=== PATIENT | female | born 1995 | race Caucasian/White ===

== ENCOUNTER → 2022-10-09 | Outpatient (CLI) | payer OTHER, SELFPAY ==
[2022-10-09 16:16] LABS: Absolute Lymphocyte Count 1.56 X10^3/uL (0.83-4.51); Absolute Neutrophil Count 5.3 X10^3/uL (2.0-7.7); Basophil# 0.02 X10^3/uL; Basophil% 0.3 % (0-1); Eosinophil# 0.05 X10^3/uL; Eosinophils% 0.7 % (0-5); Hematocrit 37.1 % (37-47); Hemoglobin 12.9 g/dL (12.0-15.0); Lymphocyte # 1.56 X10^3/ul (0.83-4.51); Lymphocyte % 20.8 % (19-41); Mean Corp Hgb Conc 34.8 g/dL (32-36); Mean Corpuscular Hgb 31.5 pg (27.0-32.0); Mean Corpuscular Volume 90.5 fL (81-99); Monocyte# 0.51 X10^3/uL; Monocyte% 6.8 % (0-10); NRBC Flagged by Analyzer 0 % (0-5); Neutrophil # 5.32 X10^3/uL (2.7-7.7); Platelet Count 287 K/mm3 (150-450); RBC Distribution Width CV 12.2 % (11.6-14.6); RBC Distribution Width SD 40.2 fl (35.1-43.9); White Blood Count 7.5 K/mm3 (4.4-11.0)
[2022-10-09 17:30] LABS: HIV - WCH Non-Reactive (Nonreactive); Hepatitis B Surface Antigen Non-Reactive (Nonreactive); Hepatitis C Antibody Non-Reactive (Nonreactive); Rubella IgG Reactive (Nonreactive); Syphilis Antibodies Non-reactive
[2022-10-11 08:08] LABS: V-Zoster IgG (Immunity) 964 index (Immune >165)
[2022-10-14 17:56] LABS: HPV Reflexed? NOT INDICATED
== END | disposition home or self-care (01) ==
PROVIDERS: PCP Family Medicine; Referring Provider Obstetrics & Gynecology; Visit Provider Obstetrics & Gynecology
DX: Z34.81 Encounter for supervision of other normal pregnancy, first trimester (principal)
CPT/HCPCS: 85025; 86703; 86762; 86780; 86787; 86803; 86850; 86900; 86901; 87086; 87088; 87340; 88175; G0145

== ENCOUNTER → 2022-11-05 | Outpatient (CLI) | payer OTHER, SELFPAY ==
[2022-11-05 11:39] LABS: Absolute Lymphocyte Count 1.55 X10^3/uL (0.83-4.51); Basophil# 0.01 X10^3/uL; Basophil% 0.2 % (0-1); Eosinophil# 0.03 X10^3/uL; Eosinophils% 0.5 % (0-5); Hematocrit 37.8 % (37-47); Hemoglobin 12.9 g/dL (12.0-15.0); Lymphocyte # 1.55 X10^3/ul (0.83-4.51); Lymphocyte % 25.5 % (19-41); Mean Corp Hgb Conc 34.1 g/dL (32-36); Mean Corpuscular Hgb 30.9 pg (27.0-32.0); Mean Corpuscular Volume 90.6 fL (81-99); Monocyte# 0.45 X10^3/uL; Monocyte% 7.4 % (0-10); NRBC Flagged by Analyzer 0 % (0-5); Neutrophil # 4.01 X10^3/uL (2.7-7.7); Neutrophil % 65.9 % (47-70); Platelet Count 286 K/mm3 (150-450); RBC Distribution Width CV 12.1 % (11.6-14.6); RBC Distribution Width SD 40.1 fl (35.1-43.9); Red Blood Count 4.17 M/mm3 (4.2-5.4); White Blood Count 6.1 K/mm3 (4.4-11.0)
[2022-11-05 11:47] LABS: Protein, Urine (Random) 19.9 mg/dL (<11.9); Protein:Creat Ratio 141 mg/g CRE (0-200)
[2022-11-05 11:51] LABS: ALB/GLOB Ratio 0.9 RATIO (0.9-2.4); AST(SGOT) 12 U/L (15-37); Alanine Aminotransfer ALT/SGPT 18 U/L (13-56); Albumin, Serum 3.1 g/dL (3.2-5.0); Alkaline Phosphatase 50 U/L (45-117); Anion Gap 6 (5-15); BUN 8 mg/dL (7-18); BUN/Creat Ratio 16.7 RATIO (10-20); Calcium,Total 8.7 mg/dL (8.5-10.1); Chloride 109 mmol/L (98-107); Creatinine, Serum 0.48 mg/dL (0.55-1.02); EST Glomerular Filtration Rate 165 mL/min (>60); Est Glom Filt Rate - Afr Amer 200 mL/min (>60); Globulin 3.3 g/dL (2.2-4.2); Glucose 89 mg/dL (74-106); LDH 131 U/L (84-246); Potassium 3.6 mmol/L (3.5-5.1); Protein, Total 6.4 g/dL (6.4-8.2); Sodium Level 139 mmol/L (136-145)
== END | disposition home or self-care (01) ==
LOC: WOBLAB 10:39
PROVIDERS: PCP Family Medicine; Visit Provider Obstetrics & Gynecology
DX: I10 Essential (primary) hypertension (principal)
CPT/HCPCS: 36415; 80053; 82570; 83615; 84156; 85025; 87086; 87088

== ENCOUNTER 2023-05-05 08:55 | Inpatient (IN) | payer OTHER, SELFPAY ==
--- NOTE | 2023-04-30 12:40 | HP.PCM_ITS ---
History and Physical Date of Admission: 05/05/23 HPI: The patient is a 27 year old female presenting for pre-operative visit. She is scheduled for repeat , for previous c/s nad 39 weeks on 05/05. Procedure discussed along with risks, benefits and complications. Other alternatives discussed for management. Consent form signed? Yes. ? ? PAST MEDICAL HISTORY PAST MEDICAL HISTORY Diagnosis Date ? Anemia ? ? ? Biliary colic 05/29/2013 ? Headache ? ? History of pre-eclampsia in prior , currently ? ? Ovarian torsion ? ? Rh incompatibility ? ? RUQ pain 05/29/2013 ? ? PAST SURGICAL HISTORY PAST SURGICAL HISTORY Procedure Laterality Date ? DELIVERY ONLY ? 12/04/15 ? , low transverse ? LAPAROSCOPY SURG CHOLECYSTECTOMY ? 05/29/13 ? MYRINGOTOMY ASPIR&/EUSTACHIAN TUBE NFLTJ ANES ? ? ? Myringotomy/tubes ? SALPINGECTOMY OR OOPHERECTOMY-ECTOPIC ? 05/2015 ? right ovary cyst with torsion ? ? ? CURRENT MEDICATIONS Current Outpatient Medications Medication Sig Dispense Refill ? aspirin, enteric coated (ASPIRIN, ENTERIC COATED) 81 mg EC tablet Take 1 tablet by mouth every afternoon. ? ? ? [id number] acd 27mg iron- 0.8 mg tab Take by mouth. ? ? ? No current facility-administered medications for this visit. ? ? ALLERGIES: Zithromax [Azithromycin] ? PERSONAL HISTORY: SOCIAL HISTORY Social History ? Tobacco Use ? Smoking status: Never ? Smokeless tobacco: Never Vaping Use ? Vaping Use: Never used Substance Use Topics ? Alcohol use: Not Currently ? ? Comment: Occasionally- not while ? Drug use: No ? FAMILY HISTORY: FAMILY HISTORY FAMILY HISTORY Problem Relation Age of Onset ? other (anemia) Mother ? ? No Known Problems Father ? ? No Known Problems Sister ? ? No Known Problems Brother ? ? No Known Problems Brother ? ? No Known Problems Brother ? ? No Known Problems Brother ? ? Thyroid Brother ? ? Cancer Maternal Grandmother ? ? many types ? Thyroid Maternal Grandmother ? ? Cancer Maternal Grandfather ? ? many types ? Hypertension Maternal Grandfather ? ? No Known Problems Paternal Grandmother ? ? Ischemic Heart Disease Paternal Grandfather ? ? Breast Cancer Maternal Aunt ? ? Cancer Paternal Aunt ? ? lung, liver ? Cancer Paternal Uncle ? ? liver ? No Known Problems Son ? ? ? REVIEW OF SYMPTOMS: GENERAL: denies fevers or chills ENDOCRINOLOGY: has not been on steroids Cardiology : denies palpitations or chest pain Respiratory: denies SOB or cough Hematology: denies history of prolonged bleeding or easy bruising or VTE Allergy: Denies history of personal or family history of allergy to anesthesia ? PHYSICAL EXAMINATION: ? VITALS: Blood pressure 112/68, weight 217 lb (98.4 kg), last menstrual period 08/02/2022. ? GENERAL: The patient is well nourished, well hydrated in no acute distress. , The patient is oriented to time, place, and person. NECK: Supple. No lynphadenopathy, normal thyroid, no thyromegaly. LUNGS: Clear to auscultation bilaterally. no wheezes, rhonchi or rales HEART: Regular rate and rhythm, Normal heart sounds, and No murmurs or gallops ABD- soft, nontender, gravid ? IMPRESSION: Estimated Date of Delivery: 05/09/23 ? PLAN: The risks/benefits/alternatives and personal involved for the planned repeat c/s were reviewed with the patient. Her questions were answered to her satisfaction and she desires to proceed. Consent was signed. I reviewed with her postop instructions and expectations. ? ? I have reviewed and updated past medical and surgical history, medications and a llergies Assessment & Plan Assessment/Plan (1) 39 weeks gestation of : (2) Previous delivery affecting :
[2023-05-05] VITALS (18 sets, daily range): BP systolic 105–132; BP diastolic 68–98; PULSE 77–99; RESP 16–21; TEMP 36.2–36.8; O2SAT 94–98; BMI 34.2
[2023-05-05] MEDS: Lactated Ringers 1,000 ML 999 ML IV (09:20)
[2023-05-05 09:46] LABS: Absolute Lymphocyte Count 1.51 X10^3/uL (0.83-4.51); Absolute Neutrophil Count 4.8 X10^3/uL (2.0-7.7); Basophil# 0.01 X10^3/uL; Basophil% 0.1 % (0-1); Eosinophil# 0.04 X10^3/uL; Eosinophils% 0.6 % (0-5); Hematocrit 33.1 % (37-47); Hemoglobin 10.8 g/dL (12.0-15.0); Lymphocyte # 1.51 X10^3/ul (0.83-4.51); Lymphocyte % 21.8 % (19-41); Mean Corp Hgb Conc 32.6 g/dL (32-36); Mean Corpuscular Volume 85.8 fL (81-99); Mean Platelet Vol. 10.1 fl (6.2-12.0); Monocyte# 0.51 X10^3/uL; Monocyte% 7.4 % (0-10); NRBC Flagged by Analyzer 0 % (0-5); Neutrophil # 4.84 X10^3/uL (2.7-7.7); Neutrophil % 69.8 % (47-70); Platelet Count 264 K/mm3 (150-450); RBC Distribution Width CV 12.8 % (11.6-14.6); RBC Distribution Width SD 39.8 fl (35.1-43.9); Red Blood Count 3.86 M/mm3 (4.2-5.4); White Blood Count 6.9 K/mm3 (4.4-11.0)
--- OUTSIDE RECORDS SUMMARY | 2023-05-05 09:48 | XMS RPT_ITS | CCD ---
Author Name Unknown Address [address] [place] [address] Organization [facility] Care Team Providers [employer] Supervisor Name Role Phone Lloyd Soto DO Primary Care Provider CL[employer]S Attending Unavailable BROWN, LLOYD R Primary Care Unavailable SHAZIA YA Attending Unavailable BROWN, LLOYD R Primary Care Unavailable SHAZIA YA Referring Unavailable GLORIA, LLOYD R Primary Care Unavailable SHAZIA YA Attending Unavailable GLORIA, LLOYD R Primary Care Unavailable SHAZIA YA Attending Unavailable GLORIA, LLOYD R Primary Care Unavailable BROWN, LLOYD R Primary Care Unavailable SELF Referring Unavailable SHAZIA YA Attending Unavailable GLORIA, LLOYD R Primary Care Unavailable SHAZIA YA Attending Unavailable GLORIA, LLOYD R Primary Care Unavailable SHAZIA YA Attending Unavailable GLORIA, LLOYD R Primary Care Unavailable CYNDI XIAO Attending Unavailable BROWN, LLOYD R Primary Care Unavailable Allergies Allergy Classification Reported Allergen(s) Allergy Type Date of Onset Reaction(s) Facility (6 sources) Azithromycin; Translations: [AZITHROMYCIN] Drug Allergy 05-26-2013 Hives, Anaphylaxis [facility] Work Phone: Medications Completed/Discontinued Medications Medication Drug Class(es) Dates Sig (Normalized) Sig (Original) aspirin 81 mg delayed release oral tablet (4 sources) Platelet Aggregation Inhibitor, Nonsteroidal Anti-inflammatory Drug Start: 11-05-2022 take 1 tablet by mouth once aspirin, enteric coated (ASPIRIN, ENTERIC COATED) 81 mg EC tablet Take 1 tablet by mouth every afternoon. 0 11/05/2022 Active Problems Active Problems Problem Classification Problem Date Documented Da te Episodic/Chronic Immunizations and screening for infectious disease (1 source) Requires diphtheria, tetanus and pertussis vaccination; Translations: [Encounter for immunization] 03-08-2023 Episodic Other complications of (5 sources) Obesity; Translations: [Obesity complicating , unspecified trimester] Onset: 12-28-2022 01-12-2023 Chronic Other complications of (1 source) Obesity complicating , unspecified trimester; Translations: [Obesity during ] Onset: 12-28-2022 Chronic Residual codes; unclassified (1 source) Gestation period, 23 weeks; Translations: [23 weeks gestation of ] 01-12-2023 Episodic Residual codes; unclassified (1 source) Gestation period, 27 weeks; Translations: [27 weeks gestation of ] 02-12-2023 Episodic Residual codes; unclassified (1 source) Gestation period, 31 weeks; Translations: [31 weeks gestation of ] 03-08-2023 Episodic Residual codes; unclassified (1 source) Gestation period, 38 weeks; Translations: [38 weeks gestation of ] 04-30-2023 Episodic Residual codes; unclassified (1 source) 23 weeks gestation of ; Translations: [23 weeks gestation of ] Onset: 02-12-2023 Episodic Past or Other Problems Problem Classification Problem Date Documented Da te Episodic/Chronic Other complications of (5 sources) History of pre-eclampsia; Translations: [Supervision of with other poor reproductive or obstetric history, unspecified trimester] Onset: 12-28-2022 01-12-2023 Episodic Other complications of (1 source) Supervision of with other poor reproductive or obstetric history, unspecified trimester; Translations: [History of pre-eclampsia in prior , currently ] Onset: 12-28-2022 Episodic Other and delivery including normal (3 sources) Normal ; Translations: [Encounter for supervision of other normal , second trimester] Onset: 12-28-2022 02-12-2023 Episodic Previous (15 sources) ; Translations: [Maternal care for unspecified type scar from previous delivery] Onset: 12-28-2022 01-12-2023 Episodic Results Test Name Value Interpretation Reference Range Facil ity Vital Signs Date Time Vital Sign Value Performing Clinician Fortino correa 04-30-2023 11:03-0500 Body weight 98.43 kg Shazia Ya MD Work Phone: [facility] 04-30-2023 11:03-0500 Diastolic blood pressure 68 mm[Hg] Shazia Ya MD Work Phone: [facility] 04-30-2023 11:03-0500 Systolic blood pressure 112 mm[Hg] Shazia Ya MD Work Phone: [facility] 03-08-2023 15:51-0500 Diastolic blood pressure 74 mm[Hg] Shazia Ya MD Work Phone: [facility] 03-08-2023 15:51-0500 Systolic blood pressure 110 mm[Hg] Shazia Ya MD Work Phone: [facility] 03-08-2023 15:34-0500 Body weight 88.91 kg Shazia Ya MD Work Phone: [facility] 02-12-2023 10:19-0500 Body weight 88 kg Shazia Ya MD Work Phone: [facility] 02-12-2023 10:19-0500 Diastolic blood pressure 60 mm[Hg] Shazia Ya MD Work Phone: [facility] 02-12-2023 10:19-0500 Systolic blood pressure 104 mm[Hg] Shazia Ya MD Work Phone: [facility] 01-12-2023 13:12-0400 Body weight 85.28 kg Shazia Ya MD Work Phone: [facility] 01-12-2023 13:12-0400 Diastolic blood pressure 58 mm[Hg] Shazia Ya MD Work Phone: [facility] 01-12-2023 13:12-0400 Systolic blood pressure 102 mm[Hg] Shazia Ya MD Work Phone: [facility] Encounters Encounter Date Encounter Type Care Provider Facility Start: 04-30-2023 End: 04-30-2023 ambulatory SELF Facility:[facility] Start: 04-30-2023 End: 04-30-2023 Patient encounter procedure Shazia Ya MD Work Phone: OB/Gynecology Procedures Date Procedure Procedure Detail Performing Clinician Start: 04-30-2023 URINE OB DIP B/O Sobeida Ya MD Work Phone: Start: 03-08-2023 URINE OB DIP B/O Sobeida Ya MD Work Phone: Start: 02-12-2023 URINE OB DIP B/O Sobeida Ya MD Work Phone: Plan of Treatment Date Care Activity Detail Author Start: 03-08-2033 Urine microalbumin profile DTa P,Tdap,Td Vaccine (6 - Td or Tdap) [facility] Start: 10-09-2025 Pap Testing Pap Testing [facility] Start: 10-09-2025 Screening for malign ant neoplasm of cervix Pap Testing [facility] Start: 09-18-2025 Urine microalbumin profile [facility] Start: 09-26-2023 Influenza vaccination Influenza Vacc ine (#1) [facility] Immunizations Immunization Date Immunization Notes Care Provider Fa cility 03-08-2023 tetanus toxoid, redu sharita diphtheria toxoid, and acellular pertussis vaccine, adsorbed Shazia Ya MD Work Phone: [facility] 09-19-2015 tetanus toxoid, redu sharita diphtheria toxoid, and acellular pertussis vaccine, adsorbed Shazia Ya MD Work Phone: [facility] Work Phone: 12-08-2013 adenovirus, type 4 a nd type 7, live, oral Shazia Ya MD Work Phone: [facility] Work Phone: 12-08-2013 hepatitis A vaccine, pediatric/adolescent dosage, 2 dose schedule Shazia Ya MD Work Phone: [facility] Work Phone: 12-08-2013 hepatitis B vaccine, pediatric or pediatric/adolescent dosage Shazia Ya MD Work Phone: [facility] Work Phone: 12-08-2013 influenza, live, intranasal, quadrivalent Shazia Ya MD Work Phone: [facility] Work Phone: 12-08-2013 meningococcal polysaccharide (groups A, C, Y and W-135) diphtheria toxoid conjugate vaccine (MCV4P) Shazia Ya MD Work Phone: [facility] Work Phone: 12-08-2013 poliovirus vaccine, inactivated Shazia Ya MD Work Phone: [facility] Work Phone: 12-08-2013 tetanus toxoid, redu sharita diphtheria toxoid, and acellular pertussis vaccine, adsorbed Shazia Ya MD Work Phone: [facility] Work Phone: 12-08-2013 influenza virus vacc ine, unspecified formulation Shazia Ya MD Work Phone: [facility] 12-05-2010 human papilloma viru s vaccine, bivalent Shazia Ya MD Work Phone: [facility] Work Phone: 08-04-2010 human papilloma viru s vaccine, bivalent Shazia Ya MD Work Phone: [facility] Work Phone: 06-02-2010 diphtheria, tetanus toxoids and pertussis vaccine Shazia Ya MD Work Phone: [facility] Work Phone: 06-02-2010 human papilloma viru s vaccine, bivalent Shazia Ya MD Work Phone: [facility] Work Phone: 06-02-2010 meningococcal polysaccharide (groups A, C, Y and W-135) diphtheria toxoid conjugate vaccine (MCV4P) Shazia Ya MD Work Phone: [facility] Work Phone: 11-17-1999 diphtheria, tetanus toxoids and acellular pertussis vaccine, unspecified formulation Shazia Ya MD Work Phone: [facility] Work Phone: 11-17-1999 hepatitis B vaccine, pediatric or pediatric/adolescent dosage Shazia Ya MD Work Phone: [facility] Work Phone: 11-17-1999 poliovirus vaccine, inactivated Shazia Ya MD Work Phone: [facility] Work Phone: Payers Date Payer Category Payer Unknown MMO MMO [employer] PPO [id number] 2021-Present [phone] [address] [place] [address] PPO [id number] 2021 Unknown [id number] Social History Date Type Detail Facility Start: 04-07-2017 End: 12-28-2022 Tobacco smoking status NHIS Never smoked tobacco [facility] Start: 04-07-2017 End: 12-28-2022 Tobacco use and exposure Smokeless tobacco non-user [facility] Start: 02-22-2019 Alcohol intake Current non-dr hr administrative assistant of alcohol (finding) [facility] Start: 02-22-2019 End: 03-06-2020 History of Social function [facility] Start: 02-22-2019 End: 03-06-2020 Tobacco use panel [facility] National Score (1-10 0), lower number is lower risk Not on file [facility] Start: 1995 Sex Assigned At Not on file [facility] Start: 01-12-2023 End: 04-30-2023 Alcohol intake Ex-drinker (finding) [facility] Start: 12-28-2022 Education 13 [facility] Start: 01-12-2023 Alcohol Comment Occasionally- not while [facility] Start: 08-16-2022 [facility] Goals Date Patient Goal Desired Activity /State Personal health goal Clinical Notes 11-27-2015 to 04-30-2023 Shazia Ya MD - 04/30/2023 11:19 AM ESTPrenatal Quick Notes - Shazia Ya MD - 04/30/2023 11:18 AM ESTPatient Blossom Desai MA - 03/08/2023 3:51 PM EST Note Date & Type Note Facility 04-30-2023 History and physical note Pre-Op History and Physical HPI: The patient is a 27 year old female presenting for pre-operative visit. She is scheduled for repeat , for previous c/s nad 39 weeks on 05/05. Procedure discussed along with risks, benefits and complications. Other alternatives discussed for management. Consent form signed? Yes. PAST MEDICAL HISTORY Diagnosis Date Anemia Biliary colic 05/29/2013 Headache History of pre-eclampsia in prior , currently Ovarian torsion Rh incompatibility RUQ pain 05/29/2013 PAST SURGICAL HISTORY Procedure Laterality Date DELIVERY ONLY 12/04/15 , low transverse LAPAROSCOPY SURG CHOLECYSTECTOMY 05/29/13 MYRINGOTOMY ASPIR&/EUSTACHIAN TUBE NFLTJ ANES Myringotomy/tubes SALPINGECTOMY OR OOPHERECTOMY-ECTOPIC 05/2015 right ovary cyst with torsion Current Outpatient Medications Medication Sig Dispense Refill aspirin, enteric coated (ASPIRIN, ENTERIC COATED) 81 mg EC tablet Take 1 tablet by mouth every afternoon. [id number] acd 27mg iron- 0.8 mg tab Take by mouth. No current facility-administered medications for this visit. ALLERGIES: Zithromax [Azithromycin] PERSONAL HISTORY: Social History Tobacco Use Smoking status: Never Smokeless tobacco: Never Vaping Use Vaping Use: Never used Substance Use Topics Alcohol use: Not Currently Comment: Occasionally- not while Drug use: No FAMILY HISTORY: FAMILY HISTORY Problem Relation Age of Onset other (anemia) Mother No Known Problems Father No Known Problems Sister No Known Problems Brother No Known Problems Brother No Known Problems Brother No Known Problems Brother Thyroid Brother Cancer Maternal Grandmother many types Thyroid Maternal Grandmother Cancer Maternal Grandfather many types Hypertension Maternal Grandfather No Known Problems Paternal Grandmother Ischemic Heart Disease Paternal Grandfather Breast Cancer Maternal Aunt Cancer Paternal Aunt lung, liver Cancer Paternal Uncle liver No Known Problems Son REVIEW OF SYMPTOMS: GENERAL: denies fevers or chills ENDOCRINOLOGY: has not been on steroids Cardiology : denies palpitations or chest pain Respiratory: denies SOB or cough Hematology: denies history of prolonged bleeding or easy bruising or VTE Allergy: Denies history of personal or family history of allergy to anesthesia PHYSICAL EXAMINATION: VITALS: Blood pressure 112/68, weight 217 lb (98.4 kg), last menstrual period 08/02/2022. GENERAL: The patient is well nourished, well hydrated in no acute distress. , The patient is oriented to time, place, and person. NECK: Supple. No lynphadenopathy, normal thyroid, no thyromegaly. LUNGS: Clear to auscultation bilaterally. no wheezes, rhonchi or rales HEART: Regular rate and rhythm, Normal heart sounds, and No murmurs or gallops ABD- soft, nontender, gravid IMPRESSION: Estimated Date of Delivery: 05/09/23 PLAN: The risks/benefits/alternatives and personal involved for the planned repeat c/s were reviewed with the patient. Her questions were answered to her satisfaction and she desires to proceed. Consent was signed. I reviewed with her postop instructions and expectations. I have reviewed and updated past medical and surgical history, medications and allergies Shazia Ya M.D. documented in this encounter [facility] 04-30-2023 Miscellaneous Notes RR- VB No. LOF No. CTXS No. Movement: present. Other c/o: No. Medication list reviewed. Physical Exam See Flow Sheet Abd: soft, nontender, gravid A/P 38w5d Estimated Date of Delivery: 05/09/23 plans repeat c/s, Consent signed. Shazia Ya M.D. documented in this encounter [facility] 04-30-2023 Instructions Blossom Puente MA - 04/30/2023 11:00 AM EST SEQUENTIAL SCREENINGS The [facility] offers sequential screenings for women who are interested in screenings for chromosomal abnormalities and certain defects during a . The sequential screen combines ultrasound and blood tests to determine the risk of chromosomal abnormalities, including Down's Syndrome (Trisomy 21) and Trisomy 18, as well as open neural tube defects including spina bifida. Ultrasound examination is performed between 11 weeks and 13 weeks gestational age. Blood tests are drawn after the ultrasound and again later in the between 15 and 21 weeks gestational age. Please let your physician know if you are interested in this testing. It will require an appointment with our plasma processing technician. This is not an ultrasound performed by a physician in our office during a routine visit. SIGNS AND SYMPTOMS OF LABOR 1. Contractions every 10 minutes or more often 2. Clear, pink, or brownish fluid (water) leaking from vagina 3. Feeling that baby is pushing down, pressure 4. Low, dull backache 5. Cramps that feel like a period 6. Cramps with or without diarrhea If you notice any of the above symptoms, contact our office at [phone] and ask to speak with a nurse. After hours, you can call doctors registry at [phone] OR call [facility] at [phone] and ask to have the doctor medtronics technician paged. If you consider this an emergency, dial 1-1-0 or go to your nearest emergency department. NEED HELP? Are you dealing with a violent or abusive relationship? Are you a victim of rape or sexual assult? Call [facility] ([place]) 24 hour Crisis Hotline: 161.459.3201 or 876-897-1333. MANUAL Your Guide to a Healthy manual is now on-line. Visit [email or web address] to download your free copy documented in this encounter [facility] 03-08-2023 Note HNO ID: [id number] Author: Blossom Puente MA Service: ? Author Type: Director Media Type: Progress Notes Filed: 03/08/2023 4:34 PM Note Text: Patient identified by name and date of . Christiano Stover presents today for a vaccination of Tdap. Patient denies an allergy to latex: yes Patient denies a severe (life-threatening) allergy to a previous dose of Tdap, DTP, DTaP, DT or Td vaccine. Yes Patient denies history of epilepsy or neurological problems: Yes Patient is afebrile and denies being moderately or severely ill: Yes Patient denies history of Guillain-[place] Syndrome (a severe paralytic illness): Yes Tdap Adacel injection was given without incident. See immunizations for details of immunizations administered today. VIS sheet provided: Yes Provider Shazia Ya MD was present in office at time of injection. Blossom Puente MA [facility] 03-08-2023 History of Presen t illness Narrative Patient identified by name and date of . Christiano Stover presents today for a vaccination of Tdap. Patient denies an allergy to latex: yes Patient denies a severe (life-threatening) allergy to a previous dose of Tdap, DTP, DTaP, DT or Td vaccine. Yes Patient denies history of epilepsy or neurological problems: Yes Patient is afebrile and denies being moderately or severely ill: Yes Patient denies history of Guillain-[place] Syndrome (a severe paralytic illness): Yes Tdap Adacel injection was given without incident. See immunizations for details of immunizations administered today. VIS sheet provided: Yes Provider Shazia Ya MD was present in office at time of injection. Blossom Puente MA documented in this encounter [facility] 03-08-2023 Miscellaneous Notes RR- VB No. LOF No. CTXS No. Movement: present. Other c/o: No. Medication list reviewed. Physical Exam See Flow Sheet Abd: soft, nontender, gravid Ext: edema: Trace A/P 31w1d Estimated Date of Delivery: 05/09/23 tdap today plans repeat c/s f/u in 2 weeks reviewed RSV recommendations and she will consider Shazia Ya M.D. documented in this encounter [facility] 03-08-2023 Instructions Blossom Puente MA - 03/08/2023 3:29 PM EST SEQUENTIAL SCREENINGS The [facility] offers sequential screenings for women who are interested in screenings for chromosomal abnormalities and certain defects during a . The sequential screen combines ultrasound and blood tests to determine the risk of chromosomal abnormalities, including Down's Syndrome (Trisomy 21) and Trisomy 18, as well as open neural tube defects including spina bifida. Ultrasound examination is performed between 11 weeks and 13 weeks gestational age. Blood tests are drawn after the ultrasound and again later in the between 15 and 21 weeks gestational age. Please let your physician know if you are interested in this testing. It will require an appointment with our plasma processing technician. This is not an ultrasound performed by a physician in our office during a routine visit. SIGNS AND SYMPTOMS OF LABOR 1. Contractions every 10 minutes or more often 2. Clear, pink, or brownish fluid (water) leaking from vagina 3. Feeling that baby is pushing down, pressure 4. Low, dull backache 5. Cramps that feel like a period 6. Cramps with or without diarrhea If you notice any of the above symptoms, contact our office at [phone] and ask to speak with a nurse. After hours, you can call doctors registry at [phone] OR call [facility] at [phone] and ask to have the doctor medtronics technician paged. If you consider this an emergency, dial 9-1-1 or go to your nearest emergency department. NEED HELP? Are you dealing with a violent or abusive relationship? Are you a victim of rape or sexual assult? Call [facility] ([place]) 24 hour Crisis Hotline: 664.676.4882 or 454-477-4426. MANUAL Your Guide to a Healthy manual is now on-line. Visit [email or web address] to download your free copy documented in this encounter [facility] 02-12-2023 Miscellaneous Notes RR- VB No. LOF No. CTXS No. Movement: present. Other c/o: No. Medication list reviewed. Physical Exam See Flow Sheet Abd: soft, nontender, gravid Ext: edema: Trace A/P 27w5d Estimated Date of Delivery: 05/09/23 Labs: 28 week labs today d/w her RSV vaccine for women and newborns Declines LARC at delivery, signed- likely will use depoprovera plans bottle feeding Plans repeat c/s, does not want tubal Shazia Ya M.D. documented in this encounter [facility] 02-12-2023 Instructions Gema Ritchie Ma - 02/12/2023 10:21 AM EST SEQUENTIAL SCREENINGS The [facility] offers sequential screenings for women who are interested in screenings for chromosomal abnormalities and certain defects during a . The sequential screen combines ultrasound and blood tests to determine the risk of chromosomal abnormalities, including Down's Syndrome (Trisomy 21) and Trisomy 18, as well as open neural tube defects including spina bifida. Ultrasound examination is performed between 11 weeks and 13 weeks gestational age. Blood tests are drawn after the ultrasound and again later in the between 15 and 21 weeks gestational age. Please let your physician know if you are interested in this testing. It will require an appointment with our plasma processing technician. This is not an ultrasound performed by a physician in our office during a routine visit. SIGNS AND SYMPTOMS OF LABOR 1. Contractions every 10 minutes or more often 2. Clear, pink, or brownish fluid (water) leaking from vagina 3. Feeling that baby is pushing down, pressure 4. Low, dull backache 5. Cramps that feel like a period 6. Cramps with or without diarrhea If you notice any of the above symptoms, contact our office at [phone] and ask to speak with a nurse. After hours, you can call doctors registry at [phone] OR call [facility] at [phone] and ask to have the doctor medtronics technician paged. If you consider this an emergency, dial 9-1-6 or go to your nearest emergency department. NEED HELP? Are you dealing with a violent or abusive relationship? Are you a victim of rape or sexual assult? Call [facility] ([place]) 24 hour Crisis Hotline: 736.476.1980 or 948-168-0340. MANUAL Your Guide to a Healthy manual is now on-line. Visit [email or web address] to download your free copy documented in this encounter [facility] 01-12-2023 Note HNO ID: [id number] Author: Shazia Ya MD Service: ? Author Type: Physician Type: Progress Notes Filed: 01/12/2023 1:32 PM Note Text: INITIAL OB ASSESSMENT OB Provider: Shazia Ya MD HPI: Eveline is a 27 year old White here to establish Obstetrical Care. Patient's last menstrual period was 08/02/2022 (approximate). from OB Dating Form. Cycles regular was unplanned but accepted Complaints: None OB History T1 L1 SAB0 IAB0 Ectopic0 Multiple0 Live Births1 # 1 - Date: 12/04/15, Sex: Male, Weight: 8 lb 12 oz (3.969 kg), GA: 37w0d, Delivery: , Low Transverse, Apgar1: None, Apgar5: None, Living: Living, Comments: Induced due to mild preeclampsia, arrest of descent, EBL 800cc # 2 - Date: None, Sex: None, Weight: None, GA: None, Delivery: None, Apgar1: None, Apgar5: None, Living: None, Comments: None Previous history: Prior : yes x 1 History of 4th degree laceration: No History of shoulder dystocia: No History of Hypertensive disorders including pre-eclampsia, chronic hypertension or gestational hypertension: Yes History of gestational diabetes: No Patient's Risk Screening for delivery: Have you had a prior mccauley between 20w and 36w6d?: No MEDICAL/PSYCHOSOCIAL HISTORY: History of hemorrhage or bleeding concerns: No Thyroid Disease: No History of chronic hypertension: No History of pre-existing diabetes: No ABO/RH(D) Date Value Ref Range Status 07/25/2015 AB POSTIVE Final No weight on file for this encounter. History of abnormal pap: No Prior treatment for cervical dysplasia: none. History of STDs: None Tobacco use: No Caffeine use: Yes,1 cup of coffee a day Drug use: No Alcohol use: No Multivitamin with Folic acid: Yes Rastafarian or heritage: No Would refuse blood transfusion if medically necessary: No Are you currently employed? Yes, Occupation: Title [employer] Do you have any history of depression, anxiety, PTSD, eating disorders or other mood problems: No Do you have any safety concerns or history of traumatic events that you would like to discuss with your provider: No SDOH Screening: How often does this describe you? I don't have enough money to pay my bills: Never Within the past 12 months, have you worried that your food would run out before you had money to buy more: Never In the past 12 months, has lack of reliable transportation kept you from going to medical appointments or work, or from keeping things needed for daily living: Never In the past 12 months, have you had any concerns about having a place to live, or about the condition or quality of your housing: Never Are there any cultural or spiritual needs we should be aware of: No Depression/Anxiety Screening: denies symptoms of depression. OB Depression and Anxiety Screening- This Encounter (since 12/27/2022) None Genetic Screening: Partner present: Yes Patient verbalized knowledge of partner family health history: Yes Do you or your partner have any personal or family history of defects not previously discussed: No Do you have history of a complicated by anomaly, genetic condition, or demise: No ACOG Recommended Screening Screening for early gestational diabetes testing: Criteria for early testing requires elevated BMI plus one other risk factor: No weight on file for this encounter. (risk factor if > than 25 or 23 in Americans) Additional risk factors: She is transferring care in-21 weeks Screening for low dose aspirin use for the prevention of pre-eclampsia: Low dose aspirin should be considered if the patient has one high or two moderate risk factors: High risk factors: History of pre-eclampsia, especially when accompanied by an adverse outcome Moderate risk ractors: Obesity (body mass index greater than 30) She does meet criteria for low dose ASA Marital Status: Partner: Name: Anuel Roper Age: 28 Occupation: Special Education Instructor Gender: Male History of STDs: None PAST MEDICAL HISTORY PAST MEDICAL HISTORY Diagnosis Date Anemia Biliary colic 05/29/2013 Headache History of pre-eclampsia in prior , currently Ovarian torsion Rh incompatibility RUQ pain 05/29/2013 PAST SURGICAL HISTORY PAST SURGICAL HISTORY Procedure Laterality Date DELIVERY ONLY 12/04/15 , low transverse LAPAROSCOPY SURG CHOLECYSTECTOMY 05/29/13 MYRINGOTOMY ASPIRAND/EUSTACHIAN TUBE NFLTJ ANES Myringotomy/tubes SALPINGECTOMY OR OOPHERECTOMY-ECTOPIC 05/2015 right ovary cyst with torsion CURRENT MEDICATIONS Current Outpatient Medications Medication Sig Dispense Refill aspirin, enteric coated (ASPIRIN, ENTERIC COATED) 81 mg EC tablet Take 1 tablet by mouth every afternoon. [id number] acd 27mg iron- 0.8 mg tab Take by mouth. (more content not included)... [facility] 01-12-2023 Miscellaneous Notes RR- VB No. LOF No. CTXS No. Movement: present. Other c/o: No. Medication list reviewed. Physical Exam See Flow Sheet Abd: soft, nontender, gravid Ext: edema: Trace A/P 23w2d Estimated Date of Delivery: 05/09/23 d/w her tolac vs repeat c/s and leaning toward repeat c/s, not good tolac candidate based on history h/o preeclampsia, reviewed baseline labs. On ASA prophylaxis f/u in 4 weeks or prn Declines flu vaccine Shazia Ya M.D. documented in this encounter [facility] 01-12-2023 History of Presen t illness Narrative INITIAL OB ASSESSMENT OB Provider: Shazia Ya MD HPI: Eveline is a 27 year old White here to establish Obstetrical Care. Patient's last menstrual period was 08/02/2022 (approximate). from OB Dating Form. Cycles regular was unplanned but accepted Complaints: None OB History T1 L1 SAB0 IAB0 Ectopic0 Multiple0 Live Births1 # 1 - Date: 12/04/15, Sex: Male, Weight: 8 lb 12 oz (3.969 kg), GA: 37w0d, Delivery: , Low Transverse, Apgar1: None, Apgar5: None, Living: Living, Comments: Induced due to mild preeclampsia, arrest of descent, EBL 800cc # 2 - Date: None, Sex: None, Weight: None, GA: None, Delivery: None, Apgar1: None, Apgar5: None, Living: None, Comments: None Previous history: Prior : yes x 1 History of 4th degree laceration: No History of shoulder dystocia: No History of Hypertensive disorders including pre-eclampsia, chronic hypertension or gestational hypertension: Yes History of gestational diabetes: No Patient's Risk Screening for delivery: Have you had a prior mccauley between 20w and 36w6d?: No MEDICAL/PSYCHOSOCIAL HISTORY: History of hemorrhage or bleeding concerns: No Thyroid Disease: No History of chronic hypertension: No History of pre-existing diabetes: No ABO/RH(D) Date Value Ref Range Status 07/25/2015 AB POSTIVE Final No weight on file for this encounter. History of abnormal pap: No Prior treatment for cervical dysplasia: none. History of STDs: None Tobacco use: No Caffeine use: Yes,1 cup of coffee a day Drug use: No Alcohol use: No Multivitamin with Folic acid: Yes Rastafarian or heritage: No Would refuse blood transfusion if medically necessary: No Are you currently employed? Yes, Occupation: Title [employer] Do you have any history of depression, anxiety, PTSD, eating disorders or other mood problems: No Do you have any safety concerns or history of traumatic events that you would like to discuss with your provider: No SDOH Screening: How often does this describe you? I don't have enough money to pay my bills: Never Within the past 12 months, have you worried that your food would run out before you had money to buy more: Never In the past 12 months, has lack of reliable transportation kept you from going to medical appointments or work, or from keeping things needed for daily living: Never In the past 12 months, have you had any concerns about having a place to live, or about the condition or quality of your housing: Never Are there any cultural or spiritual needs we should be aware of: No Depression/Anxiety Screening: denies symptoms of depression. OB Depression and Anxiety Screening- This Encounter (since 12/27/2022) None Genetic Screening: Partner present: Yes Patient verbalized knowledge of partner family health history: Yes Do you or your partner have any personal or family history of defects not previously discussed: No Do you have history of a complicated by anomaly, genetic condition, or demise: No ACOG Recommended Screening Screening for early gestational diabetes testing: Criteria for early testing requires elevated BMI plus one other risk factor: No weight on file for this encounter. (risk factor if > than 25 or 23 in Americans) Additional risk factors: She is transferring care in-21 weeks Screening for low dose aspirin use for the prevention of pre-eclampsia: Low dose aspirin should be considered if the patient has one high or two moderate risk factors: High risk factors: History of pre-eclampsia, especially when accompanied by an adverse outcome Moderate risk ractors: Obesity (body mass index greater than 30) She does meet criteria for low dose ASA Marital Status: Partner: Name: Anuel Roper Age: 28 Occupation: Special Education Instructor Gender: Male History of STDs: None PAST MEDICAL HISTORY PAST MEDICAL HISTORY Diagnosis Date Anemia Biliary colic 05/29/2013 Headache History of pre-eclampsia in prior , currently Ovarian torsion Rh incompatibility RUQ pain 05/29/2013 PAST SURGICAL HISTORY PAST SURGICAL HISTORY Procedure Laterality Date DELIVERY ONLY 12/04/15 , low transverse LAPAROSCOPY SURG CHOLECYSTECTOMY 05/29/13 MYRINGOTOMY ASPIR&/EUSTACHIAN TUBE NFLTJ ANES Myringotomy/tubes SALPINGECTOMY OR OOPHERECTOMY-ECTOPIC 05/2015 right ovary cyst with torsion CURRENT MEDICATIONS Current Outpatient Medications Medication Sig Dispense Refill aspirin, enteric coated (ASPIRIN, ENTERIC COATED) 81 mg EC tablet Take 1 tablet by mouth every afternoon. [id number] acd 27mg iron- 0.8 mg tab Take by mouth. medroxyPROGESTERone (DEPO-PROVERA) 150 mg/mL injection Inject 1 mL intramuscularly every 12 weeks. (Patient not taking: Reported on 12/28/2022) 1 mL 3 ibuprofen (MOTRIN) 600 mg tablet Take 600 mg by mouth three times daily. No current facility-administered medications for this visit. Allergies As of Date: 12/28/2022 Allergen Noted Reaction ZITHROMAX [AZITHROMYCIN] 05/26/2013 Hives and Anaphylaxis Fully Assessed 12/28/2022 Does patient have penicillin allergy: No OB Risk Screening: Completed, no positive findings documented. Reviewed above and agree. Shazia Ya MD ASSESSMENT: 27 year old at 23w2d wks gestational age PLAN: 1) Patient oriented to practice. 2) History of section: Pt counselled regarding TOLAC versus Repeat Section. Repeat C/S. 3) declines flu vaccine Follow up in 4 weeks or sooner prn. Shazia Ya MD documented in this encounter [facility] 01-12-2023 Instructions Gema Ritchie Ma - 01/12/2023 1:04 PM EDT Please select the following link to access the [facility] Your Guide to a Healthy . [email or web address] documented in this encounter [facility] 12-28-2022 Note HNO ID: [id number] Author: Alejandra Plascencia RN Service: ? Author Type: ? Type: Progress Notes Filed: 12/28/2022 8:33 AM Note Text: INITIAL OB ASSESSMENT OB Provider: Alejandra Plascencia RN HPI: Eveline is a 27 year old White here to establish Obstetrical Care. Patient's last menstrual period was 08/02/2022 (approximate). from OB Dating Form. Cycles regular was unplanned but accepted Complaints: None OB History T1 L1 SAB0 IAB0 Ectopic0 Multiple0 Live Births1 # 1 - Date: 12/04/15, Sex: Male, Weight: 8 lb 12 oz (3.969 kg), GA: 37w0d, Delivery: , Low Transverse, Apgar1: None, Apgar5: None, Living: Living, Comments: Induced due to mild preeclampsia, arrest of descent, EBL 800cc # 2 - Date: None, Sex: None, Weight: None, GA: None, Delivery: None, Apgar1: None, Apgar5: None, Living: None, Comments: None Previous history: Prior : yes x 1 History of 4th degree laceration: No History of shoulder dystocia: No History of Hypertensive disorders including pre-eclampsia, chronic hypertension or gestational hypertension: Yes History of gestational diabetes: No Patient's Risk Screening for delivery: Have you had a prior mccauley between 20w and 36w6d?: No MEDICAL/PSYCHOSOCIAL HISTORY: History of hemorrhage or bleeding concerns: No Thyroid Disease: No History of chronic hypertension: No History of pre-existing diabetes: No ABO/RH(D) Date Value Ref Range Status 07/25/2015 AB POSTIVE Final No weight on file for this encounter. History of abnormal pap: No Prior treatment for cervical dysplasia: none. History of STDs: None Tobacco use: No Caffeine use: Yes,1 cup of coffee a day Drug use: No Alcohol use: No Multivitamin with Folic acid: Yes Rastafarian or heritage: No Would refuse blood transfusion if medically necessary: No Are you currently employed? Yes, Occupation: Title [employer] Do you have any history of depression, anxiety, PTSD, eating disorders or other mood problems: No Do you have any safety concerns or history of traumatic events that you would like to discuss with your provider: No SDOH Screening: How often does this describe you? I don't have enough money to pay my bills: Never Within the past 12 months, have you worried that your food would run out before you had money to buy more: Never In the past 12 months, has lack of reliable transportation kept you from going to medical appointments or work, or from keeping things needed for daily living: Never In the past 12 months, have you had any concerns about having a place to live, or about the condition or quality of your housing: Never Are there any cultural or spiritual needs we should be aware of: No Depression/Anxiety Screening: denies symptoms of depression. OB Depression and Anxiety Screening- This Encounter (since 12/27/2022) None Genetic Screening: Partner present: Yes Patient verbalized knowledge of partner family health history: Yes Do you or your partner have any personal or family history of defects not previously discussed: No Do you have history of a complicated by anomaly, genetic condition, or demise: No ACOG Recommended Screening Screening for early gestational diabetes testing: Criteria for early testing requires elevated BMI plus one other risk factor: No weight on file for this encounter. (risk factor if > than 25 or 23 in Americans) Additional risk factors: She is transferring care in-21 weeks Screening for low dose aspirin use for the prevention of pre-eclampsia: Low dose aspirin should be considered if the patient has one high or two moderate risk factors: High risk factors: History of pre-eclampsia, especially when accompanied by an adverse outcome Moderate risk ractors: Obesity (body mass index greater than 30) She does meet criteria for low dose ASA Marital Status: Partner: Name: Anuel Roper Age: 28 Occupation: Special Education Instructor Gender: Male History of STDs: None PAST MEDICAL HISTORY Diagnosis Date Anemia Biliary colic 05/29/2013 Headache History of pre-eclampsia in prior , currently Ovarian torsion Rh incompatibility RUQ pain 05/29/2013 PAST SURGICAL HISTORY Procedure Laterality Date DELIVERY ONLY 12/04/15 , low transverse LAPAROSCOPY SURG CHOLECYSTECTOMY 05/29/13 MYRINGOTOMY ASPIRAND/EUSTACHIAN TUBE NFLTJ ANES Myringotomy/tubes SALPINGECTOMY OR OOPHERECTOMY-ECTOPIC 05/2015 right ovary cyst with torsion Current Outpatient Medications Medication Sig Dispense Refill aspirin, enteric coated (ASPIRIN, ENTERIC COATED) 81 mg EC tablet Take 1 tablet by mouth every afternoon. no.[id number] acd 27mg iron- 0.8 mg tab Take by mouth. medroxyPROGESTERone (DEPO-PROVERA) 150 mg/mL injection Inject 1 mL intramuscularly every (more content not included)... [facility] 12-22-2022 Note HNO ID: [id number] Author: Alejandra Plascencia RN Service: ? Author Type: ? Type: Progress Notes Filed: 12/22/2022 3:07 PM Note Text: I called patient. We are missing the initial dating US from 10/09/2022 from [place]. I asked patient to have it sent to our office. Records sent to be scanned [facility] 12-18-2022 Note HNO ID: [id number] Author: Maria Guadalupe Hernandez RN Service: ? Author Type: ? Type: Progress Notes Filed: 12/18/2022 9:57 AM Note Text: Received records from [place] STENOCAPTIONER. Patient was scheduled for NOB with RM. MERCEDEZ 05/09/23. Called and rescheduled patient for a PNOB and NOB. Records placed in PNOB mailbox. Maria Guadalupe Hernandez RN [facility] 12-18-2022 History of Presen t illness Narrative Received records from [place] [facility]OC[facility]TIONER. Patient was scheduled for NOB with RM. MERCEDEZ 05/09/23. Called and rescheduled patient for a PNOB and NOB. Records placed in PNOB mailbox. Maria Guadalupe Hernandez RN documented in this encounter [facility] documented as of this encounter (statuses as of 12/18/2022) [facility] History of Past illness Narrative* Problem Noted Date Diagnosed Date Resolved Date Edema of left lower extremity 11/27/2015 01/17/2016 Overview: November 27, 2015 bilateral edema worse lrgt check doppler Becka Ferris MD S/P right oophorectomy 07/25/201501/16 Overview: 06/26/15: s/p Laparoscopic Right oophorectomy for ovarian torsion in [place]. Rach Noriega MD High risk teen 07/18/2015 Overview: November 27, 2015 boy on us- feliz 07/18/2015FOB aware she is but does not want to be involved. TKRN Late care 07/18/2015 6 Overview: 07/18/2015Pt had right ovarian torsion on 06/26/2015 and had right oopherectomy in [place]. She hand carries her ultrasound records. She found out she was at that time. She is currently 17w1d. Pt signed a release of records to obtain her labwork and other records from [facility]. TKRN H/O chronic cholecystitis 06/15/2013 Overview: Cholecystectomy 03/2013 Right upper quadrant pain 05/26/2013 documented as of this encounter (statuses as of 01/12/2023) [facility] History of Past illness Narrative* Problem Noted Date Diagnosed Date Resolved Date Edema of left lower extremity 11/27/2015 01/17/2016 Overview: November 27, 2015 bilateral edema worse lrgt check doppler Becka Ferris MD S/P right oophorectomy 07/25/201501/16 Overview: 06/26/15: s/p Laparoscopic Right oophorectomy for ovarian torsion in [place]. Rach Noriega MD High risk teen 07/18/2015 Overview: November 27, 2015 boy on us- [place] 07/18/2015FOB aware she is but does not want to be involved. TKRN Late care 07/18/2015 6 Overview: 07/18/2015Pt had right ovarian torsion on 06/26/2015 and had right oopherectomy in [place]. She hand carries her ultrasound records. She found out she was at that time. She is currently 17w1d. Pt signed a release of records to obtain her labwork and other records from [facility]. TKRN H/O chronic cholecystitis 06/15/2013 Overview: Cholecystectomy 03/2013 Right upper quadrant pain 05/26/2013 documented as of this encounter (statuses as of 02/12/2023) [facility] History of Past illness Narrative* Problem Noted Date Diagnosed Date Resolved Date Edema of left lower extremity 11/27/2015 01/17/2016 Overview: November 27, 2015 bilateral edema worse lrgt check doppler Becka Ferris MD S/P right oophorectomy 07/25/201501/16 Overview: 06/26/15: s/p Laparoscopic Right oophorectomy for ovarian torsion in [place]. Rach Noriega MD High risk teen 07/18/2015 Overview: November 27, 2015 boy on us- [place] 07/18/2015FOB aware she is but does not want to be involved. TKRN Late care 07/18/2015 6 Overview: 07/18/2015Pt had right ovarian torsion on 06/26/2015 and had right oopherectomy in [place]. She hand carries her ultrasound records. She found out she was at that time. She is currently 17w1d. Pt signed a release of records to obtain her labwork and other records from [facility]. TKRN H/O chronic cholecystitis 06/15/2013 Overview: Cholecystectomy 03/2013 Right upper quadrant pain 05/26/2013 documented as of this encounter (statuses as of 03/09/2023) [facility] History of Past illness Narrative* Problem Noted Date Diagnosed Date Resolved Date Edema of left lower extremity 11/27/2015 01/17/2016 Overview: November 27, 2015 bilateral edema worse lrgt check doppler Becka Ferris MD S/P right oophorectomy 07/25/201501/16 Overview: 06/26/15: s/p Laparoscopic Right oophorectomy for ovarian torsion in [place]. Rach Noriega MD High risk teen 07/18/2015 Overview: November 27, 2015 boy on us- [place] 07/18/2015FOB aware she is but does not want to be involved. TKRN Late care 07/18/2015 6 Overview: 07/18/2015Pt had right ovarian torsion on 06/26/2015 and had right oopherectomy in [place]. She hand carries her ultrasound records. She found out she was at that time. She is currently 17w1d. Pt signed a release of records to obtain her labwork and other records from [facility]. TKRN H/O chronic cholecystitis 06/15/2013 Overview: Cholecystectomy 03/2013 Right upper quadrant pain 05/26/2013 documented as of this encounter (statuses as of 04/30/2023) [facility] with [facility], antepartum- Primary with history of section, antepartum History of pre-eclampsia in prior , currently with other poor obstetric history Obesity during 23 weeks gestation of state, incidental [facility] Diagnosis with care elsewhere, antepartum- Primary 27 weeks gestation of state, incidental Encounter for supervision of other normal in second trimester [facility] Diagnosis 31 weeks gestation of - Primary state, incidental with care elsewhere, antepartum with history of section, antepartum Need for Tdap vaccination Need for prophylactic vaccination with combined tumybyklwc-vmghtuf-ckwngghvd (DTP) vaccine [facility]* Diagnosis with history of section, antepartum- Primary 38 weeks gestation of state, incidental Encounter for supervision of other normal in third trimester documented in this encounter [facility] Health Concerns Problem Noted Date Diagnosed Date [facility] Education - [facility] 01/12/2023 Education - [place] 01/12/2023 Problem Noted Date Diagnosed Date [facility] - [facility] 01/12/2023 Education - [place] 01/12/2023 Problem Noted Date Diagnosed Date [facility] - [facility] 01/12/2023 Education - [place] 01/12/2023 Problem Noted Date Diagnosed Date [facility] Education - [facility] 01/12/2023 Education - [place] 01/12/2023 Summary Purpose Family History No Family History Records Found Advance Directives No Advanced Directives Records Found Additional Source Comments Source Comments (unrecognize d section and content) In the event this informatio n is protected by the Federal Confidentiality of Alcohol and Drug Abuse Patient Records regulations: The Federal rules restrict any use of the information to criminally investigate or prosecute any alcohol or drug abuse patient.[facility] the event this information is protected by the Federal Confidentiality of Alcohol and Drug Abuse Patient Records regulations: The Federal rules restrict any use of the information to criminally investigate or prosecute any alcohol or drug abuse patient.[facility] the event this information is protected by the Federal Confidentiality of Alcohol and Drug Abuse Patient Records regulations: The Federal rules restrict any use of the information to criminally investigate or prosecute any alcohol or drug abuse patient.[facility] the event this information is protected by the Federal Confidentiality of Alcohol and Drug Abuse Patient Records regulations: The Federal rules restrict any use of the information to criminally investigate or prosecute any alcohol or drug abuse patient.[facility] the event this information is protected by the Federal Confidentiality of Alcohol and Drug Abuse Patient Records regulations: The Federal rules restrict any use of the information to criminally investigate or prosecute any alcohol or drug abuse patient.[facility] Reason for Visit (unrecogniz ed section and content) Reason Onset Date Comments Care 02/12/2023 Reason Onset Date Comments Care 03/08/2023 Reason Onset Date Comments Care 04/30/2023 Care Teams (unrecognized sec tion and content) [employer] Relationship Specialty Start Date End Date Lloyd Soto DO PCP - General Family Medicine 05/26/13 [employer] Supervisor Relationship Specialty Start Date End Date Lloyd Soto DO PCP - General Family Medicine 05/26/13 [employer] Supervisor Relationship Specialty Start Date End Date Lloyd Soto DO PCP - General Family Medicine 05/26/13 [employer] Supervisor Relationship Specialty Start Date End Date Lloyd Soto DO PCP - General Family Medicine 05/26/13 INFORMATION SOURCE (unrecogn ized section and content) FOR RECORDS PERTAINING TO PATIENTS WHO ARE OR HAVE BEEN ENROLLED IN A CHEMICAL DEPENDENCY/SUBSTANCEABUSE PROGRAM, SOME INFORMATION MAY BE OMITTED. This clinical summary was aggregated from multiple sources. Caution should be exercised in using it in the provision of clinical care. This summary normalizes information from multiple sources, and as a consequence, information in this document may materially change the coding, format and clinical context of patient data. In addition, data may be omitted in some cases. CLINICAL DECISIONS SHOULD BE BASED ON THE PRIMARY CLINICAL RECORDS. [facility] [facility]. provides no warranty or guarantee of the accuracy or completeness of information in this document.
[2023-05-05 10:41] LABS: Syphilis Antibodies Non-reactive
[2023-05-05] MEDS: Acetaminophen 500 MG Tablet 1000 MG PO ×3 (10:43→23:39)
[2023-05-05] MEDS: Sodium Citrate/Citric Acid 30 ML UDC PO (11:24)
[2023-05-05] MEDS: Cefazolin 2 GM in 0.9% Normal Saline (100mL Bag) 100 ML IV (12:08)
--- NOTE | 2023-05-05 12:15 | EX.PCM.OBRPT ---
Assessment & Plan (1) Previous delivery affecting : (2) 39 weeks gestation of : Maternal Data Information Final MERCEDEZ: 05/09/23 Gestational age: 39 3/7 Details Operative Information Date of Procedure: 05/05/23 Pre-Operative Diagnosis: previous c/s Post-Operative Diagnosis: same Indications for : Repeat Elective Classification: Scheduled Procedure Type: low transverse sports physical therapist #1: Marilin Shearer sports physical therapist #2: Chela Naylor MS3 Type of Anesthesia: Local with 1% Lidocaine and Spinal Anesthesiologist: Wale Leung Special Medications: duramorph Antibiotic Given: Ancef 2 grams IV x1 Drain: Arriola to straight drain Estimated Blood Loss: 700 Fluids Replaced: 1000 Procedure Start Time: 12:22 Procedure Stop Time: 12:59 Time of Delivery: 12:27 Findings Description of Procedure: The patient was taken to the operating room. She was prepped and draped in the dorsal supine position with a leftward tilt. A Pfannenstiel skin incision was made approximately 2 cm above the symphysis pubis and carried through to underlying layer fascia with the scalpel. The fascia was incised incised in the midline and extended laterally with the Haines scissors. The fascia was dissected off the rectus muscles with blunt and sharp dissection. The rectus muscles were in the midline and the peritoneum was entered bluntly. The peritoneal incision was stretched and the bladder blade was placed. The uterine incision was made in a low transverse fashion with the scalpel and extended superiorly and inferiorly with blunt dissection. The amniotic membranes were ruptured bluntly and clear amniotic fluid returned. The 's head was brought to the incision in the flexed position and was not immediately delivered easily. Therefore the uterine incision and tissue were bluntly extended and I extended the fascia on the right side slightly with the scissors. The head was then brought to the incision and delivered without difficulty. The remainder of the infant was delivered with gentle traction and fundal pressure in the standard fashion. The mouth and nares were bulb suctioned. The cord was clamped and cut as the infant was stimulated. Cord clamping was not delayed since the was grimacing and had good tone but was not vigorously crying. The was handed off to the waiting nursing staff. The placenta was delivered with fundal massage and gentle traction in the standard fashion. The uterus was exteriorized and cleared of all clots and debris. The cervix was dilated with a ring forcep. The uterine incision was closed with #1 Vicryl in a running locked fashion. The incision was examined and was found to be hemostatic. The uterus was placed back into the peritoneal cavity and hemostasis was again confirmed. The rectus muscles were examined and any bleeding was Bovie cauterized. The parietal peritoneum and rectus muscles were closed en bloc with an 0 Vicryl running suture. The surgical teams outer gloves were then changed. The rectus fascia was examined and any bleeding was Bovie cauterized and the rectus fascia was closed with #1 PDS suture in a running standard fashion. The subcutaneous tissue was examining and any bleeding was Bovie cauterized. The subcutaneous tissue was reapproximated with 3-0 Vicryl suture. The skin was closed in a subcuticular fashion by the GRAIN MERCHANDIS[employer] with me present in the labor and delivery suite. I performed the remainder of the procedure with assistance. All sponge, lap, and needle counts were correct. The patient was taken to her room for recovery in a stable condition. Presentation: Positive for Vertex Amniotic Membrane Rupture Type: Artificial Amniotic Fluid Description: Clear Placental Delivery Description: Spontaneous and Expressed Placenta Disposition: [facility] Specimen(s) Sent to Pathology: none Cord Vessel Description: 3 Vessels Cord Entanglement: None A Gender: Male (1 minute): 5 (5 minute): 9 (9 at 10 min) Delayed Cord Clamping: Yes Complications Complications: none
[2023-05-05] MEDS: Oxytocin 15 Units/NS 250ml 15 UNITS/250 ML IV.SOLN 83 UNITS IV (13:38)
[2023-05-05] MEDS: Ketorolac 30 MG/ML Syringe IV ×2 (14:02→19:56)
[2023-05-05] MEDS: Lactated Ringers 1,000 ML 100 ML IV (17:08)
[2023-05-06] VITALS: BP 113/81; PULSE 72; RESP 16; TEMP 36.2; O2SAT 98
[2023-05-06] MEDS: Ketorolac 30 MG/ML Syringe IV ×2 (01:25→08:01)
[2023-05-06] MEDS: 0.9% Saline Lock 10 ML Syringe IV ×2 (01:26→08:02)
[2023-05-06 04:00] VITALS: BP 115/87; PULSE 87; RESP 16; TEMP 36.2; O2SAT 98
[2023-05-06] MEDS: Acetaminophen 500 MG Tablet 1000 MG PO ×2 (05:29→10:51)
[2023-05-06 08:00] VITALS: BP 114/83; PULSE 83; RESP 18; TEMP 36.8; O2SAT 99
[2023-05-06 08:39] LABS: Hematocrit 29.6 % (37-47); Hemoglobin 9.8 g/dL (12.0-15.0); Mean Corp Hgb Conc 33.1 g/dL (32-36); Mean Corpuscular Hgb 28.7 pg (27.0-32.0); Mean Corpuscular Volume 86.8 fL (81-99); Mean Platelet Vol. 9.8 fl (6.2-12.0); Platelet Count 283 K/mm3 (150-450); RBC Distribution Width CV 12.9 % (11.6-14.6); RBC Distribution Width SD 40.2 fl (35.1-43.9); Red Blood Count 3.41 M/mm3 (4.2-5.4); White Blood Count 10.3 K/mm3 (4.4-11.0)
--- NOTE | 2023-05-06 08:57 | NURSING ---
Assisted student with am assessment and teaching, amd medication administration. Reviewed and agree with documentation.
[2023-05-06] MEDS: Senna/Docusate Sodium 1 Tablet PO (10:53)
[2023-05-06 12:00] VITALS: BP 120/83; PULSE 81; RESP 16; TEMP 36.6
--- NOTE | 2023-05-06 12:24 | PCM.PN.OB ---
Subjective Subjective Patient is doing well and offers no complaints this morning. She desires to go home. Pain is well-controlled. She is ambulating and voiding without difficulty. She is tolerating regular diet without nausea or vomiting. Lochia is normal. She is breast-feeding without complaints. She denies lightheadedness, chest pain, shortness of breath, leg pain. Objective Data Objective Data Vital Signs: Vital Signs Temp Pulse Resp BP Pulse Ox O2 Del Method 98 F 81 16 120/83 H 99 Room Air 05/06/23 12:00 05/06/23 12:00 05/06/23 12:00 05/06/23 12:00 05/06/23 08:00 05/06/23 12:00 Oxygen Delivery Method Room Air Weight: 219 lb Body Mass Index (BMI) 34.2 Intake & Output: Intake and Output for Last 24 Hours 05/04/23 05/05/23 05/06/23 23:59 23:59 23:59 Intake Total 1876.67 / 1876.67 Output Total 1200 / 1200 250 / 250 Balance 676.67 / 676.67 -250 / -250 Lab / Micro Data 05/06/23 08:15 Labs: Laboratory Results - last 24 hr 05/06/23 08:15: WBC 10.3, RBC 3.41 L, Hgb 9.8 L, Hct 29.6 L, MCV 86.8, MCH 28.7, MCHC 33.1, RDW Std Deviation 40.2, RDW Coeff of Sharonda 12.9, Plt Count 283, MPV 9.8 Physical Exam Const alert and no apparent distress General Appearance: comfortable HEENT normocephalic Resp normal respiratory effort GI soft to palpation and non-distended GI Narrative: ATTP, FF@U-2, dressing c/d/i Extremity no calf tenderness Extremity Narrative: 1+ pitting edema bilaterally Assessment & Plan (1) Delivery by section: PLAN: Patient is postoperative day 1 from a scheduled repeat section. She desires discharge and discharge instructions were reviewed. She is meeting milestones for discharge. She has follow-up in the office next week for an incision check.
--- NOTE | 2023-05-06 12:29 | DCINST_ITS ---
Discharge Instructions Diet Discharge Diet: No restrictions Activity Discharge Activity: May Drive (once you feel strong enough to slam on a brake or turn a steering wheel sharply) May resume sexual activity in: 6 weeks Ice area for (Minutes): 15 Weight Bearing Status: Weight bearing as tolerated Lifting Restrictions: nothing heavier than baby Dressing / Incision Call your doctor if your incision/area has: Continuous Slow Oozing, Sudden Increased Bleeding, Increased Pain/ Swelling, Increased Redness, Foul Smelling Discharge and Swelling at the incision site Call your doctor if you observe: Fever of 101 or Higher, Coldness, Increased Pain, Numbness or Tingling, Change in Color, Inability to urinate, Inability to have a bowel movement, Using more than 1 pad per hour, Shortness of breath, Dizziness, Fainting spells, Swelling in the ankles, Chest pain, Prolonged hiccupping, Increased palpitations (irregular heartbeat), Calf discomfort and Uncontrolled pain Suture Line Care: Avoid Pulling/Pushing and Avoid Pinching/Bending Remove Dressing in: 3 days Cleanse incision/area with: Soap & Water Follow Up Care Please Follow Up With: Agueda Epps MD When: 1 week for incision check 6 weeks for visit Test Results: Test results from this visit will be discussed in further detail at your follow- up appointment, if applicable. Discharge Plan Admission Admit Date/Time: 05/05/23 08:55 Primary Reason for Your Visit: delivery Attending Provider: Agueda Epps Primary Care Provider: Torrey Soto Instructions Patient Instructions: After a Discharge Orders/Prescriptions Prescriptions: New oxycodone-acetaminophen [Percocet] 5-325 mg tablet 1 tab PO Q6H PRN (Reason: pain) 7 Days Qty: 5 0RF ibuprofen 600 mg tablet 600 mg PO Q6H PRN (Reason: pain) Qty: 30 0RF Discontinued aspirin 81 mg tablet,delayed release (DR/EC) 81 mg PO DAILY Patient Comments: TAKE 1 TABLET BY MOUTH EVERY DAY Referrals / Follow Up: Torrey Soto DO [Primary Care Provider] - Disposition Disposition (needs filled in before D/C Order can be placed): Home, Self Care
== END 2023-05-06 13:50 | disposition home or self-care (01) | DRG 788 ==
PROVIDERS: Admitting Provider Obstetrics & Gynecology; PCP Family Medicine; Visit Provider Obstetrics & Gynecology
PROC: 10D00Z1 Extraction of Products of Conception, Low, Open Approach (ICD-10-PCS; CPT 59514; principal; 2023-05-05 11:45)
DX: O34.211 Maternal care for low transverse scar from previous cesarean delivery (principal); Z37.0 Single live birth; Z3A.39 39 weeks gestation of pregnancy; Z79.82 Long term (current) use of aspirin
CPT/HCPCS: 59025; 59050; 85025; 85027; 86780; 86850; 86900; 86901; 99221; J7120; A4216; G0378; J2405